=== PATIENT | female | born 1970 | race Caucasian/White ===

== ENCOUNTER 2016-11-03 15:13 | Emergency (ER) | payer OTHER ==
[2016-11-03 15:18] VITALS: BP 136/95; PULSE 81; TEMP 98.8; BMI 36.3
[2016-11-03] MEDS ORDERED: ALBUTEROL SO4 2.5/IPRATROPIUM 0.5 INH SOL 3 ML VIAL.NEB. NEB ONE ×2 (15:58→16:01)
--- NOTE | 2016-11-03 15:59 | PDOC ---
History of Present Illness - General History Source: Patient Exam Limitations: No Limitations - History of Present Illness Timing/Duration: reports: changing over time, getting worse Severity: reports: moderate Associated Symptoms: reports: chest pain/soreness, cough, fever/chills, nasal congestion <Kalee Hardy - Last Filed: 11/03/16 16:19> - General History Source: Patient Exam Limitations: No Limitations - History of Present Illness Initial Comments: 11/03/16 16:00 The patient is a 45 year old female, with no significant past medical history, who presents with a 1 week moist productive cough with thick phlegm. Patient reports she presented to her PCP with similar symptoms 4 days ago, where she was prescribed Amoxicillin BID and Robitussin with no relief. Patient reports a persistent fever, cough, and pleuritic chest pain. She reports SOB, but denies diaphoresis, or palpitations. She denies any history of asthma, recent travel, or sick contacts. Allergies: None reported Social History: Non smoker. No ETOH or drug use. <Mary Adams - Last Filed: 11/03/16 16:25> - General Chief Complaint: Cold Symptoms Stated Complaint: COUGHING Time Seen by Provider: 11/03/16 15:49 Past History - Past Medical History Other medical history: obesity - Psycho/Social/Smoking Cessation Hx Suicidal Ideation: No Smoking History: Never smoked Information on smoking cessation initiated: No Hx Alcohol Use: No Drug/Substance Use Hx: No Substance Use Type: None <Kalee Hardy - Last Filed: 11/03/16 16:19> <Mary Adams - Last Filed: 11/03/16 16:25> - Past Medical History Allergies/Adverse Reactions: Allergies Allergy/AdvReac Type Severity Reaction Status Date / Time No Known Allergies Allergy Verified 11/03/16 15:18 Home Medications: Ambulatory Orders Albuterol Sulfate [Proventil HFA Inhaler -] 1 - 2 inh PO QID #1 inhaler Azithromycin [Zithromax -] 250 mg PO UTDICT #6 tab 11/03/16 Review of Systems - Review of Systems Able to Perform ROS?: Yes Constitutional: Yes: Symptoms Reported, See HPI, Fever, Malaise. No: Chills, Diaphoresis, Loss of Appetite, Weakness HEENTM: Yes: Symptoms Reported, See HPI, Nose Congestion Respiratory: Yes: Symptoms reported, See HPI, Cough, Shortness of Breath, SOB with Exertion, Productive cough. No: SOB at Rest, Wheezing Cardiac (ROS): Yes: Chest Pain. No: Edema, Lightheadedness, Palpitations Neurological: Yes: Symptoms reported, See HPI, Weakness. No: Headache All Other Systems: Reviewed and Negative <Mary Adams - Last Filed: 11/03/16 16:25> *Physical Exam - Vital Signs Last Vital Signs Temp Pulse Resp BP Pulse Ox 98.8 F 81 18 136/95 100 11/03/16 15:16 11/03/16 15:16 11/03/16 15:16 11/03/16 15:16 11/03/16 15:16 <Kalee Hardy - Last Filed: 11/03/16 16:19> - Vital Signs Last Vital Signs Temp Pulse Resp BP Pulse Ox 98.8 F 81 18 136/95 100 11/03/16 15:16 11/03/16 15:16 11/03/16 15:16 11/03/16 15:16 11/03/16 15:16 - Physical Exam General Appearance: Yes: Appropriately Dressed. No: Apparent Distress HEENT: positive: EOMI, ROSALINO, Normal ENT Inspection, Normal Voice Neck: positive: Supple. negative: Tender Respiratory/Chest: positive: Decreased Breath Sounds, Other (diminished right sided breath sounds). negative: Chest Tender, Rapid RR, Rales, Stridor Cardiovascular: positive: Regular Rhythm, Regular Rate <Mary Adams - Last Filed: 11/03/16 16:25> *DC/Admit/Observation/Transfer - Discharge Dispostion Admit: No <Kalee Hardy - Last Filed: 11/03/16 16:19> - Attestations Scribe Attestion: 11/03/16 16:06 Documentation prepared by Mary Adams, acting as medical laboratory scientist for Emergency Dept,Physician, [employer]. <Mary Adams - Last Filed: 11/03/16 16:25> Diagnosis at time of Disposition: Bronchitis - Discharge Dispostion Disposition: HOME Condition at time of disposition: Stable - Prescriptions Prescriptions: Albuterol Sulfate [Proventil HFA Inhaler -] 1 - 2 inh PO QID #1 inhaler Azithromycin [Zithromax -] 250 mg PO UTDICT #6 tab - Referrals Referrals: Juan Jay MD [Primary Care Provider] - - Patient Instructions Printed Discharge Instructions: DI for Acute Bronchitis Additional Instructions: Rest, drink lots of fluids: Teas, water, soups, Pedialyte Saltwater gargles Steamy showers/seem to face break up mucus Avoid contact with others until fevers and cough resolved Lots of handwashing and good hygiene Continue [id number] medications for symptomatic relief Tylenol or Motrin for fever and pain Change antibiotic to azithromycin as directed May continue albuterol pumps 2 puffs 4 times a day for the next 2 days then as needed for continued cough Followup with private physician in one to 2 days Return to emergency department for worsened symptoms, fevers, dehydration - Post Discharge Activity Work/School Note: Back to Work
== END 2016-11-03 16:30 | disposition home or self-care (01) ==
LOC: JERFT 15:13
PROC: 3E0F7GC Introduction of Other Therapeutic Substance into Respiratory Tract, Via Natural or Artificial Opening (ICD-10-PCS; principal; 2016-11-03)
DX: J20.9 Acute bronchitis, unspecified (principal)
CPT/HCPCS: 71020-TC; 94640; 99281-25